=== PATIENT | male | born 1955 | race Caucasian/White ===

== ENCOUNTER 2016-12-29 20:03 | Emergency (ER) | payer BC ==
[2016-12-29 20:23] VITALS: BP 121/67
[2016-12-29] MEDS ORDERED: Tetracaine 0.5% OPTH.SOL 4 ML* 1 DROP BTL ONE (21:14)
[2016-12-29] MEDS ORDERED: Fluorescein Sodium TOPICAL* 1 MG TEST OPHTHALMIC ONE (21:14)
[2016-12-29] MEDS ORDERED: Acetaminophen TAB* 325 MG PO ONE (22:22)
[2016-12-29] MEDS ORDERED: Ciprofloxacin 0.3% OPTH.SOL* 2.5 ML BTL LEFT EYE ONE (22:22)
--- NOTE | 2016-12-29 22:27 | UC ---
France Evangelista Alok, scribed for Radha Buchanan MD on 12/29/16 at 2214 . Eye Complaint HPI - HPI Summary HPI Summary: 61M presents to the [facility] with left eye pain yesterday evening while removing his contact, worsening today. Pt describes the pain as a sharp pain and notes church at the upper lid. Pt states his eye pain is aggravated by light. + clear tears. Pt states he does not have his contacts in currently. burning, sharp pain. Pt denies fever, chills, rash, nausea, vomit, or ear pain. Pt denies h/o eye surgeries. Pt is allergic to penicillins. Pt denies tobacco use and drinks ETOH occasionally. Patient medications reviewed this visit. - History of Current Complaint Chief Complaint: UCEye Stated Complaint: LT EYE PAIN Time Seen by Provider: 12/29/16 22:05 Hx Obtained From: Patient Onset/Duration: Lasting Days, Still Present, Worse Since - Today Timing: Constant Severity Initially: Moderate Severity Currently: Moderate Pain Intensity: 8 Pain Scale Used: 0-10 Numeric Location of Injury: Eye Lid (upper) Character: Sharp Aggravating Factor(s): Light, Contact Lens Alleviating Factor(s): Nothing Associated Signs And Symptoms: Positive: Photophobia, Drainage (Clear) - Allergies/Home Medications Allergies/Adverse Reactions: Allergies Allergy/AdvReac Type Severity Reaction Status Date / Time Penicillins Allergy Rash/HIVES/HIGH Verified 01/06/16 15:13 FEVER Home Medications: Home Medications NK [No Home Medications Reported] 12/29/16 [History Confirmed 12/29/16] PMH/Surg Hx/FS Hx/Imm Hx Previously Healthy: Yes - Surgical History Surgical History: Yes Surgery Procedure, Year, and Place: BILATERAL KNEE SURGERY REMOVED CARTILAGE 1973/1974. CYST REMOVED OFF LEFT HAND FOURTH FINGER - Family History Known Family History: Negative: Cardiac Disease, Hypertension, Diabetes - Social History Occupation: Employed Full-time Lives: With Family Alcohol Use: Rare Substance Use Type: None Smoking Status (MU): Former Smoker Review of Systems Constitutional: Negative Skin: Negative Eyes: Drainage, Photophobia, Other - left eye pain ENT: Negative Respiratory: Negative Cardiovascular: Negative Gastrointestinal: Negative Genitourinary: Negative Motor: Negative Neurovascular: Negative Musculoskeletal: Other: - jaw pain Neurological: Negative Psychological: Negative All Other Systems Reviewed And Are Negative: Yes Physical Exam Triage Information Reviewed: Yes Appearance: Well-Appearing, No Pain Distress, Well-Nourished Vital Signs: Initial Vital Signs Temp 100.4 F 12/29/16 20:19 Pulse 78 12/29/16 20:19 Resp 18 12/29/16 20:19 BP 121/67 12/29/16 20:19 Pulse Ox 99 12/29/16 20:19 Vital Signs Reviewed: Yes Eyes: Positive: Other: - mild photophobia YUNI, EOM intact and full injected clear discharge lids everted upper and lower - no fb pt with relief with tetracaine visbile vertical abrasion left eye at 9 o'clock with fluorescene no f.b. appreciated ENT: Positive: Normal ENT inspection, Hearing grossly normal, Pharynx normal Dental Exam: Normal Neck exam: Normal Neck: Positive: Supple, Nontender Respiratory Exam: Normal Respiratory: Positive: Chest non-tender, Lungs clear, Normal breath sounds, No respiratory distress, No accessory muscle use Cardiovascular Exam: Normal Cardiovascular: Positive: RRR, No Murmur Abdominal Exam: Normal Abdomen Description: Positive: Nontender, No Organomegaly Musculoskeletal Exam: Normal Musculoskeletal: Positive: Strength Intact Neurological Exam: Normal Neurological: Positive: Alert Psychological Exam: Normal Psychological: Positive: Normal Response To Family Eye Complaint Course/Dx - Course Course Of Treatment: Pt with pain in left eye since removing contact lens yesterday. Pt with abrasion on fluorescene. will start cipro. advised no contact. ophtho f/u. pt comfotable and in agreement with plan - Differential Dx/Diagnosis Provider Diagnoses: corneal abrasion Discharge - Discharge Plan Condition: Stable Disposition: HOME Patient Education Materials: Corneal Abrasion (ED) Referrals: Brandon Govea MD [Primary Care Provider] - Chavez Frank MD [Medical Doctor] - Additional Instructions: - Apply eye drop to affected every 8 hours - Okay to alternate ibuprofen (advil, Motrin) and tylenol every 3 hours for pain - take with food - Do NOT put your contact in for a minimum of 5 days - throw out the contact you were wearing when your pain began - Contact the field marketing specialist tomorrow to schedule a follow-up appointment. It is very important your are seen by a specialist to evaluate for complications or infections related to the scratch - wearing eye glasses and staying in dark rooms will help with your discomfort The documentation as recorded by the France swan Alok accurately reflects the service I personally performed and the decisions made by me, Radha Buchanan MD.
== END 2016-12-29 22:40 | disposition home or self-care (01) ==
LOC: UCEAST 20:03
DX: H18.822 Corneal disorder due to contact lens, left eye (principal); Z88.0 Allergy status to penicillin; Z87.891 Personal history of nicotine dependence
CPT/HCPCS: 99213; A9270-GY; G0463

== ENCOUNTER 2018-06-17 07:50 | Emergency (ER) | payer BC ==
[2018-06-17 07:58] VITALS: BP 133/90
[2018-06-17] MEDS ORDERED: Lidocain 1% EPI 1:100,000 * 30 ML MDV INJ ONE (09:30)
[2018-06-17] MEDS ORDERED: Lidocain 1% EPI 1:100,000 * 30 ML MDV ONE (09:33)
--- NOTE | 2018-06-17 10:19 | UC ---
Knee Pain HPI - HPI Summary HPI Summary: Patient is a 62-year-old male that has had right knee pain and swelling 5 weeks. He denies any known trauma. He is an outdoors person. He often works in his [employer] and what lot. He denies any fever or chills. He denies any rash. Rates that his right knee does feel warm at times but it has not ever felt red. He denies any history of gout. He states he did have surgery on his right medial meniscus - History of Current Complaint Chief Complaint: UCLowerExtremity Stated Complaint: KNEE COMPLAINT Time Seen by Provider: 06/17/18 09:00 Hx Obtained From: Patient Onset/Duration: Gradual Onset, Lasting Weeks Severity Initially: Moderate Severity Currently: Moderate Pain Intensity: 7 Pain Scale Used: 0-10 Numeric Character: Sharp, Dull, Aching Aggravating Factor(s): Movement, Weight Bearing Alleviating Factor(s): Rest Associated Signs And Symptoms: Positive: Swelling. Negative: Redness, Bruising , Fever, Weakness, Numbness, Tingling Able to Bear Weight: Yes - Allergies/Home Medications Allergies/Adverse Reactions: Allergies Allergy/AdvReac Type Severity Reaction Status Date / Time Penicillins Allergy Hives Verified 06/17/18 07:58 PMH/Surg Hx/FS Hx/Imm Hx Previously Healthy: Yes - Surgical History Surgical History: Yes Surgery Procedure, Year, and Place: BILATERAL KNEE SURGERY REMOVED CARTILAGE 1973/1974. CYST REMOVED OFF LEFT HAND FOURTH FINGER - Family History Known Family History: Positive: Other - Ca Negative: Cardiac Disease, Hypertension, Diabetes - Social History Alcohol Use: Rare Substance Use Type: None Smoking Status (MU): Former Smoker Review of Systems All Other Systems Reviewed And Are Negative: Yes Constitutional: Positive: Negative Skin: Positive: Negative Eyes: Positive: Negative ENT: Positive: Negative Respiratory: Positive: Negative Cardiovascular: Positive: Negative Gastrointestinal: Positive: Negative Genitourinary: Positive: Negative Motor: Positive: Negative Neurovascular: Positive: Negative Musculoskeletal: Positive: Arthralgia Neurological: Positive: Negative Psychological: Positive: Negative Physical Exam Triage Information Reviewed: Yes Appearance: Well-Appearing, No Pain Distress, Well-Nourished Vital Signs: Initial Vital Signs Temp 98.4 F 06/17/18 07:54 Pulse 81 06/17/18 07:54 Resp 18 06/17/18 07:54 BP 133/90 06/17/18 07:54 Pulse Ox 100 06/17/18 07:54 Vital Signs Reviewed: Yes Eyes: Positive: Conjunctiva Clear ENT: Positive: Hearing grossly normal. Negative: Nasal congestion, Nasal drainage, Trismus, Muffled voice, Hoarse voice Neck: Positive: Supple, Nontender Respiratory: Positive: Lungs clear, Normal breath sounds, No respiratory distress, No accessory muscle use Cardiovascular: Positive: RRR, No Murmur Musculoskeletal: Positive: ROM Limited @ - right knee, Other: - Right knee (++++ ) effusion with ballotable patella no heat/erthyema ROM limited due to size of patella Procedures - Procedure Summary Procedure Summary: Procedure: Aspiration of right knee effusion procedure explain/risk of introducing infection discussed/all questions answer permit signed time out sterile prep anest with 4 cc lidocaine with epi using asceptic technique 90 cc of yellow/slightly turbid fluid removed sterile dressing and claire wrap applied tolerated procedure well Diagnostics - Radiology No standard instances Radiology Interpretation Completed By: Radiologist Summary of Radiographic Findings: knee XR read as normal Knee Pain Course/Dx - Differential Dx/Diagnosis Provider Diagnosis: Effusion of knee joint right Discharge - Sign-Out/Discharge Documenting (check all that apply): Patient Departure All imaging exams completed and their final reports reviewed: Yes - Discharge Plan Condition: Stable Disposition: HOME Patient Education Materials: Swollen Knee Joint (ED) Referrals: Casey Simeon [Primary Care Provider] - 4 Days Additional Instructions: Many tests are pending on the fluid removed from your knee -cell count -crystal studies -culture -PCR test for lyme disease given your history this could be due to lyme disease rest elevate remove claire wrap in about 12 hours may reapply as needed Recheck for fever/redness/worsening symptoms your BP was a little high here and should be followed - Billing Disposition and Condition Condition: STABLE Disposition: Home
[2018-06-17 12:20] LABS: Body Fluid Source Synovial Fluid
[2018-06-17 14:52] LABS: Body Fluid Mono 3 %
[2018-06-18 20:01] LABS: Lyme Disease Source SYNOVIAL FLUID
--- NOTE | 2018-06-18 20:47 | UC ---
- Progress Note Progress Note: synovial fluid (+) for B. burgdorferi PLEASE NOTIFY PT He has LYME ARTHRITIS I suggest he take doxy 100mg twice daily for 28 days I suggest he make an appt to see Dr. Obey Calabrese (Inf Disease) ERxed Course/Dx - Diagnoses Provider Diagnoses: Effusion of knee joint right Discharge - Sign-Out/Discharge Documenting (check all that apply): Patient Departure All imaging exams completed and their final reports reviewed: Yes - Discharge Plan Condition: Stable Disposition: HOME Prescriptions: DOXYcycline CAP(*) [DOXYcycline 100MG CAP(*)] 100 mg PO BID #[id number] cap Patient Education Materials: Swollen Knee Joint (ED) Referrals: Bharati RODRIGUEZ,Obey Fuller [Medical Doctor] - 5 Days Additional Instructions: Many tests are pending on the fluid removed from your knee -cell count -crystal studies -culture -PCR test for lyme disease given your history this could be due to lyme disease rest elevate remove claire wrap in about 12 hours may reapply as needed Recheck for fever/redness/worsening symptoms your BP was a little high here and should be followed - Billing Disposition and Condition Condition: STABLE Disposition: Home
== END 2018-06-17 10:29 | disposition home or self-care (01) ==
LOC: UCEAST 07:50
DX: M25.461 Effusion, right knee (principal); A69.23 Arthritis due to Lyme disease; Z88.0 Allergy status to penicillin; Z87.891 Personal history of nicotine dependence
CPT/HCPCS: 20605; 36415; 87040; 87205; 87476; 87640; 87641; 87798; 89051; 89060; 99211; G0463